=== PATIENT | female | born 1985 | race Caucasian/White ===

== ENCOUNTER → 2016-05-06 | Outpatient (REF) | payer OTHER | END | disposition home or self-care (01) | LOC: M LAB REF 17:01 | PROVIDERS: ATTEND Advanced Practice Midwife | DX: Z34.83 Encounter for supervision of other normal pregnancy, third trimester (principal); Z36 Encounter for antenatal screening of mother; Z3A.00 Weeks of gestation of pregnancy not specified ==

== ENCOUNTER → 2016-05-19 | Outpatient (REF) | payer OTHER | LOC: M LAB REF 13:10 | PROVIDERS: ATTEND Advanced Practice Midwife | DX: Z36 Encounter for antenatal screening of mother (principal) ==

== ENCOUNTER 2016-06-10 15:16 | Inpatient (IN) | payer OTHER ==
[~2016-06-10] VITALS: Ht 167.6 cm; Wt 79.0 kg
[2016-06-10] VITALS (20 sets, daily range): BP systolic 92–167; BP diastolic 53–98
[2016-06-10] MEDS ORDERED: PENICILLIN G POTASSIUM IV 5 MU in D5W MINI-BAG PLUS 100 ML IV STA (15:54)
[2016-06-10] MEDS ORDERED: ACET50TA PO (16:02)
[2016-06-10] MEDS ORDERED: STUACAP PO (16:03)
[2016-06-10] MEDS ORDERED: MOM30SS PO (16:04)
[2016-06-10] MEDS ORDERED: miSOPROStol 50 MCG 1/2 TAB (S0191) PO ONE (16:15)
--- NOTE | 2016-06-10 16:21 | HPE ---
DATE OF ADMISSION: 06/10/2016 Nurys is a 31-year-old 5, para 1-0-3-1 at 39-1/7 weeks gestation with an EDC of 06/16/2016 based on last normal period and confirmed by first trimester ultrasound. She presents to labor and delivery today for induction of labor for social reasons per consult with Dr. Faith Conroy. She denies any regular contractions and leakage of fluid. She does report some scant bloody show and her fetus has been active. care was initiated in the first trimester with a transfer of care to [facility] at 34 weeks gestation. Her course has been complicated by a history of cervical surgery, loop electrosurgical excision procedure (LEEP) performed in the past. OBSTETRICAL HISTORY: 2000: Elective termination of . September 2004: Spontaneous miscarriage. March 2011: Spontaneous vaginal delivery for 7 pounds 7 ounces male at 39-5/7 weeks gestation. April 2015: Spontaneous miscarriage. OB LABS: Blood type is O positive, antibody screen negative. Her Pap was normal. Rubella immune, VDRL nonreactive. Urine culture no growth. Hep B surface antigen negative, HIV negative. Hep C antibody has not been drawn. Gonorrhea and chlamydia negative. Urine culture negative. She did decline all genetic serum screening markers. Her gestational diabetic screening was elevated at 167 with a normal 3-hour glucose tolerance test. Fasting 74, 1-hour 47, 2-hour 163, 3-hour 78 and her GBS is positive. PAST MEDICAL HISTORY: Past medical history. History of abnormal Pap, childhood varicella and HPV. SURGERIES: Laparoscopic surgery, LEEP and appendectomy. She does have a history of infertility in the past and has undergone infertility treatments, however, for this spontaneously concieved. FAMILY HISTORY: Grave's disease. SOCIAL HISTORY: The patient is , the is en route as he has been in training out of the state. She is a nonsmoker. Denies alcohol and drug use. There is a history of positive HPV and she denies history of abuse physical, sexual and emotional. ALLERGIES: No known drug allergies. CURRENT MEDICATIONS: Include vitamin, evening primrose oil and fish oil supplements. OBJECTIVE: Vital signs are stable. Temperature 97.1, pulse 106, respirations 18. Initial blood pressure 167/98 with a repeat of 115/83. heart rate is 150, moderate variability, positive accelerations, no decelerations. She is nava every 3 minutes. Sterile vaginal examination: 2, 80% effaced, minus two station. Her abdomen is gravid, cephalic presentation. Estimated weight 7 pounds. ASSESSMENT: Intrauterine at 39-1/7 weeks. heart rate category 1, term . PLAN: Admit patient to labor and delivery. Labs as ordered including a pre-eclamptic profile. Out of bed ad sal. Regular diet at this time. I will start with one dose of misoprostol for cervical ripening and likely start Pitocin following that dose. The patient does desire an epidural when she is in active labor. I did review risks to induction, which include but not limited to failed induction, increased risk for section. intolerance to labor. The patient has all of her questions answered and desired to proceed with this social induction as requested. I do anticipate cervical ripening, labor and a spontaneous vaginal delivery.
[2016-06-10 17:47] LABS: ALT/SGPT 17 U/L (12-78); AST/SGOT 19 U/L (15-37); BILIRUBIN,TOTAL 0.4 MG/DL (0.2-1.0); GLOMERULAR FILTRATION RATE > 60.0 (>60); URIC ACID 3.2 MG/DL (2.6-6.0)
[2016-06-10 17:57] LABS: MEAN CORPUSCULAR HEMOGLOBIN 29.9 pg (27.0-33.0); MEAN CORPUSCULAR HGB CONC 34.4 g/dl (32.0-36.5); MEAN CORPUSCULAR VOLUME 86.9 fl (80.0-96.0); WHITE BLOOD COUNT 11.2 K/mm3 (4.0-10.0)
[2016-06-10] MEDS ORDERED: FENTANYL 2MCG/ML ROPIVACAINE 0.2% NACL 250 ML CADD As Ordered ONE (18:35)
[2016-06-10] MEDS ORDERED: REFRIGERATOR IV KEYS XX PRN (19:30)
[2016-06-10] MEDS ORDERED: NALOXONE INJ 0.4 MG/1 ML VIAL (J2310) IV PRN (19:30)
[2016-06-10] MEDS ORDERED: EPIDURAL/PCA KEYS XX PRN (19:30)
[2016-06-10] MEDS ORDERED: EPIDURAL COMMENT XX SCH (19:30)
[2016-06-10] MEDS ORDERED: ePHEDrine SULFATE 25 MG/5 ML(5MG/ML) SYRINGE IV PRN (19:30)
[2016-06-10] MEDS ORDERED: LACTATED RINGER'S 1000 ML IV PRN (19:30)
[2016-06-10] MEDS ORDERED: FENTANYL/ROPIVACAINE/NACL CADD 250 ML EPIDURAL SCH (19:30)
[2016-06-10] MEDS ORDERED: LR 1,000 ML IV SCH (20:19)
[2016-06-10] MEDS: ONDANSETRON 4MG/2ML VIAL (J2405) IV PRN (20:21)
[2016-06-10] MEDS ORDERED: OXYTOCIN DRIP 30 UNITS in APPROPRIATE DILUENT 1 EA IV SCH (20:30)
[2016-06-10] MEDS: PENICILLIN G POTASSIUM IV 2.5 MU in D5W 100 ML IV SCH (20:49)
[2016-06-10] MEDS: diphenhydrAMINE INJ 50MG/ML VIAL (J1200) IV PRN (20:59)
[2016-06-11 00:17] VITALS: BP 97/61
[2016-06-11 00:47] VITALS: BP 89/51
[2016-06-11] MEDS: PENICILLIN G POTASSIUM IV 2.5 MU in D5W 100 ML IV SCH (01:04)
[2016-06-11 01:16] VITALS: BP 99/58
[2016-06-11 01:47] VITALS: BP 105/57
[2016-06-11] MEDS: diphenhydrAMINE INJ 50MG/ML VIAL (J1200) IV PRN (02:09)
[2016-06-11] MEDS: ONDANSETRON 4MG/2ML VIAL (J2405) IV PRN (02:48)
[2016-06-11] MEDS ORDERED: OXYTOCIN DRIP 30 UNITS in APPROPRIATE DILUENT 1 EA IV SCH (04:41)
[2016-06-11] MEDS ORDERED: MEASLES,MUMPS,RUBELLA VACCINE INJ (MMR-II) (90707) SC SCH (04:45)
[2016-06-11] MEDS ORDERED: ACETAMINOPHEN 500 MG TAB PO PRN (04:45)
[2016-06-11] MEDS ORDERED: METHYLERGONOVINE MALEATE 0.2 MG TAB PO PRN (04:45)
[2016-06-11] MEDS ORDERED: RHOGAM 300 MCG (1500 IU) INJ (J2790) IM SCH (04:45)
[2016-06-11] MEDS ORDERED: DIBUCAINE 1% OINTMENT 30GM TOP PRN (04:45)
[2016-06-11] MEDS ORDERED: DOCUSATE SODIUM 100 MG CAP PO PRN (04:45)
[2016-06-11 06:42] VITALS: BP 117/69
--- NOTE | 2016-06-11 07:12 | DN ---
DATE: 06/10/2016 Nurys progressed to full dilation at 0357. She pushed to a normal spontaneous vaginal delivery of a live female in occiput anterior (OA) position with restitution to left occiput transverse (LOT) position at 0414. There was no nuchal cord. Shoulders delivered with gentle downward traction and corpus immediately followed. The was placed on maternal abdomen crying and active. The cord was clamped times two and cut by the father of the baby once pulsations ceased. Cord blood was obtained. Spontaneous expulsion of an intact placenta with three-vessel cord by Deleon mechanism was at 0420. Uterine hemostasis was achieved with uterine fundal massage and IV Pitocin rapid infusion. Estimated blood loss 350 mL. Perineum and vagina inspected and noted to have a first-degree midline laceration. Laceration repaired with #3-0 Rapide in the usual fashion. female weighed 3654 grams, 8 pounds 1 ounce. 8 and 9. Mom does plan to breastfeed her daughter. The family have named her Jane. At the close of delivery, lap counts, needle counts and instrument counts were correct and verified. Once recovered, mom and baby will be transferred to mother/baby care unit.
[2016-06-11] MEDS: PRENATAL VITAMIN TAB PO SCH (09:00)
[2016-06-11] MEDS: IBUPROFEN 800 MG TAB PO PRN ×2 (09:15→17:20)
[2016-06-11 18:00] VITALS: BP 124/82
[2016-06-12] MEDS: IBUPROFEN 800 MG TAB PO PRN (05:30)
[2016-06-12 06:25] VITALS: BP 120/79
[2016-06-12] MEDS: PRENATAL VITAMIN TAB PO SCH (09:00)
[2016-06-12] MEDS ORDERED: PRENTAB9 PO (10:55)
[2016-06-12] MEDS ORDERED: IBUP-1114 PO (10:55)
[2016-06-12] MEDS ORDERED: ACET50TA PO (10:55)
== END 2016-06-12 12:30 | disposition home or self-care (01) | DRG 775 ==
LOC: M LDI 15:16 → M OBS 06-11 06:35
PROVIDERS: ADMIT Advanced Practice Midwife; ATTEND Advanced Practice Midwife
PROC: 10E0XZZ Delivery of Products of Conception, External Approach (ICD-10-PCS; principal; 2016-06-10)
PROC: 0HQ9XZZ Repair Perineum Skin, External Approach (ICD-10-PCS; 2016-06-10)
DX: O70.0 First degree perineal laceration during delivery (principal); Z37.0 Single live birth; Z3A.39 39 weeks gestation of pregnancy; O99.820 Streptococcus B carrier state complicating pregnancy